=== PATIENT | female | born 1965 | race African-American/Black ===

== ENCOUNTER 2018-06-06 16:06 | Inpatient (IN) ==
[2018-06-06] MEDS ORDERED: ONDANSETRON 4 MG/2 ML VIAL IV STA (17:23)
[2018-06-06] MEDS ORDERED: PANTOPRAZOLE 40 MG VIAL IV STA (17:23)
[2018-06-06 18:28] LABS: Basophils % 0.3 % (0.0-0.8); Eosinophils # 0.1 10*3/uL (0.0-0.87); Eosinophils % 0.5 % (0.00-10.9); Hematocrit 23.8 VOL% (35.7-47.0); Hemoglobin 7.6 GM/DL (12.0-16.0); Immature Granulocytes % 0.6 %; Immature Granulocytes Absolute 0.08 #; Lymphocytes # 3.7 10*3/uL (1.4-4.0); Lymphocytes % 28.1 % (21.3-54.2); Mean Corpuscular HGB Conc 31.9 GM/DL (32-36); Mean Corpuscular Hemoglobin 28 PG (27-34); Mean Corpuscular Volume 86.9 FL (87-102); Mean Platelet Volume 11.8 FL (9.6-12.0); Monocytes # 0.9 10*3/uL (0.11-0.8); Monocytes % 6.6 % (1.7-12.7); Neutrophils # 8.5 10*3/uL (1.4-7.4); Neutrophils % 63.9 % (38.7-73.9); Platelet Count 235 T/CUMM (130-400); Red Blood Count 2.74 MC/CUMM (3.8-5.5); Red Cell Distribution Width 14.9 % (9.3-17.3); White Blood Count 13.3 T/CUMM (4-12)
[2018-06-06 18:34] LABS: INR 1.1; PT Patient Result 11.6 SECS
[2018-06-06 18:40] LABS: Alanine Aminotransferase 14 U/L (13-56); Albumin 3.3 G/DL (3.4-5.0); Alkaline Phosphatase 80 U/L (45-117); Aspartate Amino Transferase 10 U/L (0-37); Bilirubin,Total < 0.39 MG/DL (0.2-1.0); Blood Urea Nitrogen 34 MG/DL (7-18); Calcium 8.6 MG/DL (8.5-10.1); Glucose 109 MG/DL (74-106); Osmolality,Calculated 300.4 MOS/KG (273-304); Potassium 3.7 MMOL/L (3.5-5.1); Sodium 147 MMOL/L (136-145); Total Protein 6.7 G/DL (6.4-8.3)
[2018-06-06] MEDS ORDERED: SODIUM CHLORIDE 0.9% 1,000 ML IV STA (19:09)
[2018-06-06] MEDS ORDERED: hydrALAZINE 20 MG/1 ML VIAL IV STA (19:59)
[2018-06-06] MEDS ORDERED: LABETALOL 20 MG/4 ML SYRINGE IV STA (19:59)
[2018-06-06] MEDS ORDERED: SODIUM CHLORIDE 0.9% 1,000 ML IV PRN (21:55)
[2018-06-06] MEDS ORDERED: hydrALAZINE 20 MG/1 ML VIAL IV PRN (21:58)
[2018-06-06] MEDS ORDERED: tiZANidine 4 MG TABLET PO SCH (22:00)
[2018-06-06] MEDS ORDERED: ALPRAZolam 0.5 MG TABLET PO SCH (22:00)
[2018-06-06] MEDS ORDERED: oxyCODONE/ACETAMINOPHEN 5-325 MG TABLET PO SCH (22:00)
[2018-06-06 22:24] LABS: Hematocrit 21.1 VOL% (35.7-47.0); Hemoglobin 6.8 GM/DL (12.0-16.0)
[2018-06-06] MEDS ORDERED: SODIUM CHLORIDE 0.9% 250 ML IV ONE (23:49)
[2018-06-07] MEDS ORDERED: FLUMAZENIL 0.5 MG/5 ML VIAL IV ONE ×2 (00:06→00:11)
[2018-06-07 00:07] LABS: Basophils % 0.1 % (0.0-0.8); Eosinophils # 0.1 10*3/uL (0.0-0.87); Eosinophils % 0.9 % (0.00-10.9); Immature Granulocytes % 0.4 %; Immature Granulocytes Absolute 0.05 #; Lymphocytes # 3.9 10*3/uL (1.4-4.0); Lymphocytes % 34.8 % (21.3-54.2); Mean Corpuscular HGB Conc 31.4 GM/DL (32-36); Mean Corpuscular Hemoglobin 28 PG (27-34); Mean Corpuscular Volume 88.4 FL (87-102); Mean Platelet Volume 11.2 FL (9.6-12.0); Monocytes # 0.7 10*3/uL (0.11-0.8); Monocytes % 6.6 % (1.7-12.7); Neutrophils # 6.4 10*3/uL (1.4-7.4); Neutrophils % 57.2 % (38.7-73.9); Platelet Count 170 T/CUMM (130-400); Red Blood Count 1.98 MC/CUMM (3.8-5.5); Red Cell Distribution Width 14.8 % (9.3-17.3); White Blood Count 11.1 T/CUMM (4-12)
[2018-06-07 00:11] LABS: Hemoglobin 5.5 GM/DL (12.0-16.0)
[2018-06-07 00:12] LABS: Hematocrit 17.5 VOL% (35.7-47.0)
[2018-06-07] MEDS ORDERED: NALOXONE 0.4 MG/ML VIAL ONE (00:15)
[2018-06-07] MEDS ORDERED: SODIUM CHLORIDE 0.9% 1,000 ML IV PRN ×2 (03:45→08:54)
[2018-06-07 05:13] LABS: Basophils % 0.2 % (0.0-0.8); Eosinophils # 0.2 10*3/uL (0.0-0.87); Eosinophils % 1.3 % (0.00-10.9); Hematocrit 22.5 VOL% (35.7-47.0); Immature Granulocytes % 0.5 %; Immature Granulocytes Absolute 0.06 #; Lymphocytes % 33.6 % (21.3-54.2); Mean Corpuscular Hemoglobin 29 PG (27-34); Mean Corpuscular Volume 90.4 FL (87-102); Mean Platelet Volume 11.8 FL (9.6-12.0); Monocytes # 0.7 10*3/uL (0.11-0.8); Monocytes % 5.9 % (1.7-12.7); Neutrophils % 58.5 % (38.7-73.9); Platelet Count 183 T/CUMM (130-400); Red Cell Distribution Width 14.7 % (9.3-17.3); White Blood Count 11.9 T/CUMM (4-12)
[2018-06-07] MEDS: oxyCODONE/ACETAMINOPHEN 5-325 MG TABLET PO PRN ×2 (05:13→14:42)
[2018-06-07 05:19] LABS: Red Blood Count 2.49 MC/CUMM (3.8-5.5)
[2018-06-07 05:20] LABS: Hemoglobin 7.2 GM/DL (12.0-16.0)
[2018-06-07 05:21] LABS: Calcium 7.9 MG/DL (8.5-10.1); Potassium 3.7 MMOL/L (3.5-5.1)
[2018-06-07 05:36] LABS: % Iron Saturation 31.2 % (18-50); Ferritin 58.4 ng/ml (8-252)
[2018-06-07 06:09] LABS: Folate 7.1 NG/ML (5.4-24.0); Vitamin B12 173 PG/ML (211-911)
[2018-06-07 06:55] LABS: Sedimentation Rate-Westergren 20 MM/HR (0-30)
[2018-06-07] MEDS ORDERED: amLODIPine 10 MG TABLET PO SCH (09:00)
[2018-06-07] MEDS: PANTOPRAZOLE 40 MG VIAL IV SCH ×2 (09:21→21:04)
[2018-06-07 09:27] LABS: Hematocrit 30.7 VOL% (35.7-47.0)
[2018-06-07 10:10] LABS: Hemoglobin A1 (Alkaline) 85.4 % (96.5-98.5)
[2018-06-07 10:11] LABS: Hemoglobin A2 (Alkaline) 2.8 % (1.5-3.5)
[2018-06-07 10:28] LABS: Hemoglobin S (Alkaline) 11.8 %
[2018-06-07 16:27] LABS: Hematocrit 32.3 VOL% (35.7-47.0); Hemoglobin 10.6 GM/DL (12.0-16.0)
[2018-06-07] MEDS: SODIUM CHLORIDE 0.45% 1,000 ML IV SCH (17:35)
[2018-06-07] MEDS: ALPRAZolam 0.5 MG TABLET PO PRN (18:49)
[2018-06-07] MEDS: tiZANidine 4 MG TABLET PO PRN (21:06)
[2018-06-08] MEDS: oxyCODONE/ACETAMINOPHEN 5-325 MG TABLET PO PRN ×3 (02:03→20:40)
[2018-06-08 03:31] LABS: Basophils % 0.4 % (0.0-0.8); Eosinophils # 0.3 10*3/uL (0.0-0.87); Eosinophils % 3.2 % (0.00-10.9); Hematocrit 31.5 VOL% (35.7-47.0); Hemoglobin 10.3 GM/DL (12.0-16.0); Immature Granulocytes % 0.3 %; Immature Granulocytes Absolute 0.03 #; Lymphocytes # 2.8 10*3/uL (1.4-4.0); Lymphocytes % 28.2 % (21.3-54.2); Mean Corpuscular HGB Conc 32.7 GM/DL (32-36); Mean Corpuscular Hemoglobin 29 PG (27-34); Mean Corpuscular Volume 88.7 FL (87-102); Mean Platelet Volume 11.6 FL (9.6-12.0); Monocytes # 0.6 10*3/uL (0.11-0.8); Monocytes % 6.1 % (1.7-12.7); Neutrophils # 6.1 10*3/uL (1.4-7.4); Neutrophils % 61.8 % (38.7-73.9); Platelet Count 149 T/CUMM (130-400); Red Blood Count 3.55 MC/CUMM (3.8-5.5); Red Cell Distribution Width 14.8 % (9.3-17.3); White Blood Count 9.9 T/CUMM (4-12)
[2018-06-08 03:47] LABS: Calcium 8.3 MG/DL (8.5-10.1); Osmolality,Calculated 290.7 MOS/KG (273-304); Potassium 4.1 MMOL/L (3.5-5.1)
[2018-06-08] MEDS: SODIUM CHLORIDE 0.45% 1,000 ML IV SCH (04:34)
[2018-06-08] MEDS: ALPRAZolam 0.5 MG TABLET PO PRN (07:43)
[2018-06-08] MEDS: PANTOPRAZOLE 40 MG VIAL IV SCH ×2 (08:00→20:39)
[2018-06-08] MEDS: amLODIPine 10 MG TABLET PO SCH (10:55)
[2018-06-08] MEDS: NIFEdipine 10 MG CAPSULE PO PRN (11:35)
[2018-06-08] MEDS ORDERED: LIDOCAINE 100 MG/5 ML SYRINGE ONE (12:22)
[2018-06-08] MEDS ORDERED: PROPOFOL 200 MG/20 ML VIAL IV ONE (12:22)
[2018-06-08] MEDS: tiZANidine 4 MG TABLET PO PRN (12:35)
[2018-06-08] MEDS: ONDANSETRON 4 MG/2 ML VIAL IV PRN (14:55)
[2018-06-09] MEDS: ALPRAZolam 0.5 MG TABLET PO PRN ×3 (00:14→17:35)
[2018-06-09] MEDS: ONDANSETRON 4 MG/2 ML VIAL IV PRN (06:01)
[2018-06-09 06:31] LABS: Basophils % 0.2 % (0.0-0.8); Eosinophils # 0.3 10*3/uL (0.0-0.87); Eosinophils % 2.9 % (0.00-10.9); Hematocrit 32.8 VOL% (35.7-47.0); Hemoglobin 10.5 GM/DL (12.0-16.0); Immature Granulocytes % 0.5 %; Immature Granulocytes Absolute 0.04 #; Lymphocytes # 2.7 10*3/uL (1.4-4.0); Mean Corpuscular Hemoglobin 29 PG (27-34); Mean Corpuscular Volume 89.1 FL (87-102); Mean Platelet Volume 11.6 FL (9.6-12.0); Monocytes # 0.6 10*3/uL (0.11-0.8); Monocytes % 7.1 % (1.7-12.7); Neutrophils # 4.9 10*3/uL (1.4-7.4); Neutrophils % 57.3 % (38.7-73.9); Platelet Count 191 T/CUMM (130-400); Red Blood Count 3.68 MC/CUMM (3.8-5.5); Red Cell Distribution Width 14.9 % (9.3-17.3); White Blood Count 8.5 T/CUMM (4-12)
[2018-06-09 06:37] LABS: Calcium 8.8 MG/DL (8.5-10.1); Osmolality,Calculated 288.7 MOS/KG (273-304); Potassium 3.7 MMOL/L (3.5-5.1)
[2018-06-09] MEDS: NIFEdipine 10 MG CAPSULE PO PRN (07:07)
[2018-06-09] MEDS ORDERED: ASPIRIN CHEW 81 MG TABLET PO ONE ×2 (07:10→07:14)
[2018-06-09] MEDS ORDERED: NITROGLYCERIN SL 0.4 MG TABLET SL ONE (07:10)
[2018-06-09] MEDS ORDERED: NITROGLYCERIN SL 0.4 MG TABLET SL PRN (07:14)
[2018-06-09] MEDS ORDERED: ALUM/MAG/SIMETH/LIDO VISC 1:1 30 ML BOTTLE PO ONE (08:00)
[2018-06-09] MEDS: amLODIPine 10 MG TABLET PO SCH (09:05)
[2018-06-09] MEDS: PANTOPRAZOLE 40 MG VIAL IV SCH ×2 (09:07→20:25)
[2018-06-09] MEDS: oxyCODONE/ACETAMINOPHEN 5-325 MG TABLET PO PRN ×2 (10:18→20:23)
[2018-06-09] MEDS ORDERED: CYANOCOBALAMIN 1000 MCG/1 ML VIAL IM ONE (13:00)
[2018-06-09] MEDS: DILTIAZEM 30 MG TABLET PO SCH ×2 (13:13→17:35)
[2018-06-09 20:23] VITALS: BP 118/83
== END 2018-06-09 23:20 | disposition home or self-care (01) | DRG 377 ==
LOC: N.ED 16:06 → SUATTDRO 20:41 → N.EDINP 20:41 → N.3E 21:10 → N.ICU 06-07 00:21 → N.2E 06-08 11:48
PROVIDERS: ADMIT Internal Medicine; ATTEND Internal Medicine